=== PATIENT | male | born 1935 | race Caucasian/White ===

== ENCOUNTER → 2016-12-20 | Outpatient (CLI) | payer OTHER, MEDICARE ==
[~2016-12-20] MED LIST: ATEN50TA8 PO; BROM0.07 OPR; NIAC500T11 PO; OMEGCAP2 PO; PRED1SUS3 OPR
--- NOTE | 2016-12-20 14:27 | DIAGNOSTIC IMAGING REPORT ---
ULTRASOUND OF THE THYROID GLAND CLINICAL HISTORY: Neck fullness. COMPARISON STUDY: No priors. TECHNIQUE: Real-time, grayscale, and color flow sonography of the thyroid gland is performed utilizing a high-frequency linear transducer. Images are reviewed in the transverse and longitudinal planes. FINDINGS: Right lobe: The right lobe of the thyroid gland is normal in size and homogeneous in echotexture, measuring 5.3 x 1.4 x 1.3 cm. A colloid cyst in the midpole measures 0.5 x 0.3 x 0.5 cm. Left lobe: The left lobe of the thyroid gland is normal in size and homogeneous in echotexture, measuring 4.6 x 1.4 x 1.1 cm. Isthmus: The thyroid isthmus is normal in appearance and measures 0.2 cm in AP diameter. Soft tissues: The region of reported swelling corresponds to the right-sided mandibular gland which is normal in appearance. This is symmetric to the left submandibular gland. IMPRESSION: 1. Unremarkable sonographic assessment of the thyroid gland. 2. The region of concern corresponds to a normal-appearing right submandibular gland. Electronically signed by: Trenton Laguerre M.D. 12/20/2016 2:25 PM Dictated Date/Time: 12/20/2016 2:23 PM
== END | disposition home or self-care (01) ==
LOC: C.ULTR 13:07
PROVIDERS: ATTEND Neuromusculoskeletal Medicine & OMM
DX: R22.1 Localized swelling, mass and lump, neck (principal)

== ENCOUNTER → 2017-08-08 | Day surgery (SDC) | payer OTHER, MEDICARE ==
[2017-08-04 14:01] VITALS: BMI 25.0
[~2017-08-08] VITALS: Ht 175.3 cm; Wt 77.3 kg
[~2017-08-08] MED LIST changes: +ASPCH81X PO; -BROM0.07 OPR; +LIDOCAINE HCL 2% 2 ML VIAL (20MG/ML) ONE; -PRED1SUS3 OPR; +PROPOFOL IV EMULSION 10 MG/ML 20 ML VIAL IV ONE; +SODIUM CHLORIDE 0.9% 500ML 500 ML IV ONE
[2017-08-08 09:29] VITALS: Ht 175.3 cm; Wt 77.3 kg
--- NOTE | 2017-08-08 09:50 | Endo History and Physical ---
History & Physical Date of Service: Aug 08, 2017. Chief Complaint: CONSTIPATION Referring Physician: DR. RIOS History of Present Illness Rex Brambila is a 82 year old male presenting for colonoscopy. He has hx of colon diverticulosis, noted on colonoscopy in 2006. He recently has issues w constipation x 3-4 weeks. Been using , Smooth move tea. Bowels move every 3 days , said has straining and noted dry hard stools w ~intermittent hematochezia and rectal pain at times due to~hemorrhoids because of straining. His PMHx is pertinent for HTN, hyperlipidemia, CKD III. Does have strong family hx of heart disease and diabetes but no hx of colorectal ca. Dght has hx of Crohn's disease. He remains active - walks usually 3 miles a day outside or on treadmill (does 1 mile/20 mins), and denies any CP, SOB, exertional dyspnea. Denies any light headedness, dizziness, abd pain, n/v, leg swelling. Appetite, weight stable. Denies any major illness or hospitalization in past year. Past Surgical History Hx Cardiac Surgery: No Hx Internal Defibrillator: No Hx Pacemaker: No Hx Abdominal Surgery: No Hx of Implantable Prosthesis: No Hx Post-Op Nausea and Vomiting: No Hx Cancer Surgery: No Hx Thoracic Surgery: No Hx Orthopedic: No Hx Urinary Tract Surgery: No Family History None Social History Smoking Status: Never Smoker Hx Substance Use: No Hx Alcohol Use: No Allergies Coded Allergies: No Known Allergies (Verified , 08/08/17) Current Medications Reported Home Medications Medications Dose Route/Sig Max Daily Dose Days Date Category Aspirin Chewable (Aspirin) 81 Mg Chew 81 Mg PO HS 08/04/17 Reported Tenormin (Atenolol) 50 Mg Tab 0.5 Tab PO HS 08/04/17 Reported Niacin 500 Mg Tab 500 Mg PO QAM 02/09/16 Reported Fish Oil ([place]-3 Fatty Acids) 1 Cap Cap 1 Cap PO QAM 02/09/16 Reported Vital Signs Weight (Kilograms): 77.27 Height (Feet): 5 Height (Inches): 9 Date Time Temp Pulse Resp B/P (MAP) Pulse Ox O2 Delivery O2 Flow Rate FiO2 08/08/17 09:44 36.6 74 18 151/79 (103) 96 Room Air Physical Exam General Appearance: WD/WN, no apparent distress Respiratory/Chest: Respiratory effort: no dyspnea Auscultation: breath sounds normal, CTA except as noted, no wheezing Cardiovascular: Apical Impulse: not displaced Heart Auscultation: RRR, normal S1 Abdomen: Bowel Sounds: normal Inspection & Palpation: soft, non-distended Assessment and Plan 82 yo presenting for Colonoscopy for new onset constipation
--- NOTE | 2017-08-08 10:40 | Discharge Instructions ---
Endoscopy Patient Instructions Date / Procedure(s) Performed Aug 08, 2017. Colonoscopy Allergy Information Coded Allergies: No Known Allergies (Verified , 08/08/17) Discharge Date / Findings Aug 08, 2017. Internal and external hemorrhoids Diverticuli Otherwise normal examination and no etiology to explain constipation Recommendations to start daily miralax 17 grams orally or twice daily. Hold for diarrhea Follow up with Primary Care Provider Provider Instructions Activity Restrictions - No exercising or heavy lifting for 24 hours. - Do not drink alcohol the day of the procedure. - Do not drive a car or operate machinery until the day after the procedure. - Do not make any important decisions or sign important papers in 24 hours after the procedure. Following Day: - Return to full activity which may include returning to work/school. Diet Start your diet with liquids and light foods (jello, soup, juice, toast). Then eat your usual diet if not nauseated. Treatment For Common After Affects For mild abdominal pain, bloating, or excessive gas: - Rest - Eat lightly - Lie on right side Follow-Up Information Follow-up with DR. RIOS as scheduled Anesthesia Information What You Should Know You have had a procedure that required some medicine to reduce anxiety and discomfort. This treatment is called moderate sedation. After receiving the treatment, you may be sleepy, but you will be able to breathe on your own. The effects of the treatment may last for several hours. Follow these instructions along with Activity/Diet recommendations noted above: * Do NOT do anything where dizziness or clumsiness would be dangerous. * Rest quietly at home today, then you can be up and about tomorrow. * Have a responsible person stay with you the rest of today. * You may have had an I.V. today. If so, you may take the dressing off later today. Recommendations Call your doctor if: * Trouble breathing * Continuous vomiting for more than 24 hours * Temperature above 101 degrees * Severe abdominal pain or bloating * Pain not relieved by pain medicine ordered * There is increased drainage or redness from any incision * A large amount of rectal bleeding greater than 2-3 tablespoons. (If you had a polyp/s removed or have hemorrhoids, a small amount of blood - from the rectum is to be expected.) * You have any unanswered questions or concerns. IN THE EVENT OF A SERIOUS EMERGENCY, GO TO THE NEAREST EMERGENCY ROOM Your discharge instructions were prepared by provider Giuseppe Pulido. Patient Instructions Signature Page Rex Patty Patient (or Guardian) Signature/Date: I have read and understand the instructions given to me by my caregivers. Caregiver/RN/Doctor Signature/Date: The above-named patient and/or guardian has received patient instructions on this date. + Original Patient Signature Page (only) stays with chart. Please make copy for patient.
--- NOTE | 2017-08-08 11:01 | GI REPORT ---
Procedure Date: 08/08/2017 9:54 AM Procedure: Colonoscopy Indications: Constipation Medicines: Monitored Anesthesia Care Complications: No immediate complications. Estimated blood loss: None. Estimated Blood Loss: Estimated blood loss: none. Procedure: Pre-Anesthesia Assessment: - Pre-Anesthesia Assessment: - Prior to the procedure, a History and Physical was performed, and patient medications, allergies and sensitivities were reviewed. The patient's tolerance of previous anesthesia was reviewed. Please see [email or web address] for complete details. - The risks and benefits of the procedure and the sedation options and risks were discussed with the patient. All questions were answered and informed consent was obtained. - Patient identification and proposed procedure were verified prior to the procedure by the physician and the nurse. The procedure was verified in the pre-procedure area in the procedure room. After obtaining informed consent, the endoscope was passed carefully and meticuously under direct vision and only advanced when the lumen was clearly identified, C02 insuflation was utilized throughout the entirity of the procedure. Throughout the procedure, the patient's blood pressure, pulse, and oxygen saturations were monitored continuously. After I obtained informed consent, the scope was passed under direct vision. Throughout the procedure, the patient's blood pressure, pulse, and oxygen saturations were monitored continuously. The scope was introduced through the anus and advanced to the terminal ileum, with identification of the appendiceal orifice and IC valve. The colonoscopy was performed without difficulty. The patient tolerated the procedure well. The quality of the bowel preparation was good. Findings: Multiple small-mouthed diverticula were found in the sigmoid colon. Internal hemorrhoids were found during retroflexion. External hemorrhoids were identified. The terminal ileum appeared normal. The exam was otherwise without abnormality on direct and retroflexion views. Impression: - Diverticulosis in the sigmoid colon. - Internal and External hemorrhoids. - The examined portion of the ileum was normal. - The examination was otherwise normal on direct and retroflexion views. - No specimens collected. Recommendation: - Discharge patient to home (with escort). - Return to referring physician as previously scheduled. - Miralax 1 capful (17 grams) in 8 ounces of water PO daily. Giuseppe Pulido MD 08/08/2017 10:28:39 AM This report has been signed electronically. Note Initiated On: 08/08/2017 9:54 AM I attest to the content of the Intraoperative Record and orders documented therein, exceptions below
[2017-08-08 11:02] VITALS: BP 128/98; PULSE 64; O2SAT 96
--- NOTE | 2017-08-08 11:03 | Anesthesiology Progress Note ---
Anesthesia Post Op Note Date & Time Aug 08, 2017 at 11:03 Vital Signs Pain Intensity: 0 Vital Signs Past 12 Hours Date Time Temp Pulse Resp B/P (MAP) Pulse Ox O2 Delivery O2 Flow Rate FiO2 08/08/17 10:45 62 18 120/95 (103) 98 Room Air 08/08/17 10:29 71 18 121/72 (88) 97 Room Air 08/08/17 09:44 36.6 74 18 151/79 (103) 96 Room Air Notes Mental Status: alert / awake / arousable, participated in evaluation Pt Amnestic to Procedure: Yes Nausea / Vomiting: adequately controlled Pain: adequately controlled Airway Patency, RR, SpO2: stable & adequate BP & HR: stable & adequate Hydration State: stable & adequate Anesthetic Complications: no major complications apparent
== END | disposition home or self-care (01) ==
LOC: C.GI 09:15
PROVIDERS: ATTEND Internal Medicine
DX: K59.00 Constipation, unspecified (principal); K64.8 Other hemorrhoids; K57.30 Diverticulosis of large intestine without perforation or abscess without bleeding; I10 Essential (primary) hypertension; E78.5 Hyperlipidemia, unspecified; I12.9 Hypertensive chronic kidney disease with stage 1 through stage 4 chronic kidney disease, or unspecified chronic kidney disease; N18.3 Chronic kidney disease, stage 3 (moderate); E11.9 Type 2 diabetes mellitus without complications; Z82.49 Family history of ischemic heart disease and other diseases of the circulatory system; Z83.3 Family history of diabetes mellitus; Z79.82 Long term (current) use of aspirin